=== PATIENT | female | born 1965 | race African-American/Black ===

== ENCOUNTER 2020-08-12 08:03 | Outpatient (CLI) | payer BC, SELFPAY ==
--- NOTE | ~2020-08-12 | MM_ITS ---
EXAMINATION: MM screening phil BI w fredy HISTORY: Screening TECHNIQUE: Craniocaudal and mediolateral oblique 3-D tomosynthesis images were obtained and synthetic 2-D images were generated. CAD analysis was submitted and interpreted. COMPARISON: Comparison to multiple prior studies sequentially, with oldest reviewed study dated 12/27. BREAST PARENCHYMAL COMPOSITION: There are scattered areas of fibroglandular density. FINDINGS: There is no evidence of suspicious mass, calcification, or architectural distortion to sugg est malignancy in either breast. There has been no suspicious interval change. IMPRESSION: 1. No mammographic evidence of malignancy. 2. Recommend routine screening mammography in one year. 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
== END 2020-08-12 08:04 | disposition home or self-care (01) ==
LOC: ANHIMG 08:04
PROVIDERS: PCP Pediatrics; Visit Provider Student in an Organized Health Care Education/Training Program
DX: Z12.31 Encounter for screening mammogram for malignant neoplasm of breast (principal)
CPT/HCPCS: 77063; 77067

== ENCOUNTER → 2020-08-27 01:23 | Outpatient (CLI) | payer BC, SELFPAY ==
[2020-08-27 19:13] LABS: SARS-CoV-2 RNA PCR Negative
== END ==
PROVIDERS: PCP Pediatrics; Visit Provider Internal Medicine Gastroenterology
DX: Z01.812 Encounter for preprocedural laboratory examination (principal); Z20.822 Contact with and (suspected) exposure to COVID-19
CPT/HCPCS: C9803; U0003; U0005

== ENCOUNTER 2020-08-31 03:09 | Day surgery (SDC) | payer BC, SELFPAY ==
[2020-08-19 10:54] VITALS: BMI 48.8
[2020-08-31 08:25] VITALS: BP 137/91; PULSE 82; RESP 19; TEMP 35.8; O2SAT 82
[2020-08-31 08:32] VITALS: BMI 48.5
[2020-08-31] MEDS: LACTATED RINGERS 1,000 ML 150 ML IV CONT (08:39)
--- NOTE | 2020-08-31 09:00 | PM.HPGS ---
History of Present Illness History of Present Illness Consent: Risks, benefits, and alternatives have been discussed and questions answered. Patient agrees to proceed with procedure. Chief complaint: Neoplasm Screening Narrative: Sakshi Rodney is a 54 year old female referred for colon cancer screening Review of Systems Review of Systems: All systems reviewed & are unremarkable except as noted in HPI and below PMFSH Past Medical History Medical History Complete miscarriage six and a half months stillborn delivery Hypertension Surgical History Surgical History History of tubal ligation Previous section Family History Family History Mother Hypertension Other Breast cancer Social History Social History Smoking status: Never smoker Alcohol intake: never Substance use: never Substance use type: does not use Living arrangements: with family Gender identity (if verbalized by the patient): Female Spiritual care concerns: No Meds Home Medications and Allergies Home Medications Medication Instructions Recorded Confirmed Type amlodipine 2.5 mg PO DAILY 05/21/19 08/31/20 History hydrochlorothiazide 25 mg PO DAILY 05/21/19 08/31/20 History allopurinol 300 mg tablet 300 mg PO DAILY 08/02/20 08/31/20 History ascorbic acid (vitamin C) 1,000 mg 1 g PO DAILY 08/02/20 08/31/20 History tablet ferrous sulfate 65 mg BYMOUTH DAILY 08/02/20 08/31/20 History Allergies Allergy/AdvReac Type Severity Reaction Status Date / Time No Known Allergies Allergy Verified 08/31/20 08:31 Exam Resp: Auscultation: clear to auscultation bilaterally Cardio: Rate: regular rate Rhythm: regular rhythm GI: GI Palp: Yes Soft to palpation and No Tenderness to palpation present (GI) Assessment and Plan Assessment and plan (1) Colon cancer screening: Code(s): Z12.11 - Encounter for screening for malignant neoplasm of colon Status: Acute Assessment and Plan: Colonoscopy with possible biopsy or polypectomy or cautery or injection of substances.
--- NOTE | 2020-08-31 09:18 | WPDANESEPPF ---
Anes - Initial Pre Proc Eval Procedure: Operation Date: 08/31/20 09:30 Proposed Procedures p Screening Colonoscopy - Garladn Aparicio MD Date/Time: 08/31/20 09:18 Surgeon: Garland Aparicio MD Pre Op Diagnosis: Neoplasm Screening Patient Data Age: 54 Gender: F Height: 5 ft 3 in Weight: 124.3 kg Allergies Allergy/AdvReac Type Severity Reaction Status Date / Time No Known Allergies Allergy Verified 08/31/20 08:31 Home Medications Medication Instructions Recorded Confirmed Type amlodipine 2.5 mg PO DAILY 05/21/19 08/31/20 History hydrochlorothiazide 25 mg PO DAILY 05/21/19 08/31/20 History allopurinol 300 mg tablet 300 mg PO DAILY 08/02/20 08/31/20 History ascorbic acid (vitamin C) 1,000 mg 1 g PO DAILY 08/02/20 08/31/20 History tablet ferrous sulfate 65 mg BYMOUTH DAILY 08/02/20 08/31/20 History Patient hx anesthesia problems: none Family hx anesthesia problems: none PMFSH Past Medical History Medical History Complete miscarriage six and a half months stillborn delivery Hypertension Surgical History Surgical History History of tubal ligation Previous section Family History Family History Mother Hypertension Other Breast cancer Social History Social History Smoking status: Never smoker Alcohol intake: never Substance use: never Substance use type: does not use Living arrangements: with family Gender identity (if verbalized by the patient): Female Spiritual care concerns: No Anes - Eval Final PreProcedure Day of Procedure 08/31/20 09:18 Patient weight: morbidly obese Heart: regular rate and rhythm Lungs: clear to auscultation Airway: Mallampati scale class II Neurological: alert and oriented Last oral intake: >/= 8 hours ASA classification: III Emergent: no Anesthetic plan: proceed Anesthesia type and monitoring: general GIVS and standard monitoring Informed Consent: The patient's anesthetic plan and its attendant risks and benefits were discussed with the patient/family/POA. Questions were solicited and answers provided to the satisfaction of the patient/family/POA.
[2020-08-31 09:44] VITALS: BP 102/66; PULSE 81; RESP 26; O2SAT 97
[2020-08-31 09:54] VITALS: BP 107/66; PULSE 72; RESP 21; O2SAT 98
[2020-08-31 10:04] VITALS: BP 114/69; PULSE 69; RESP 19; O2SAT 98
[2020-08-31 10:12] VITALS: BP 108/74; PULSE 67; RESP 16; O2SAT 100
== END 2020-08-31 10:21 | disposition home or self-care (01) ==
PROVIDERS: PCP Pediatrics; Visit Provider Internal Medicine Gastroenterology
PROC: 0DJD8ZZ Inspection of Lower Intestinal Tract, Via Natural or Artificial Opening Endoscopic (ICD-10-PCS; CPT 45378; principal; 2020-08-31 09:30)
DX: Z12.11 Encounter for screening for malignant neoplasm of colon (principal); I10 Essential (primary) hypertension; E66.01 Morbid (severe) obesity due to excess calories; Z68.42 Body mass index [BMI] 45.0-49.9, adult
CPT/HCPCS: 45378; J2704; J7120

== ENCOUNTER 2022-12-28 09:03 | Outpatient (CLI) | payer OTHER, SELFPAY ==
--- NOTE | ~2022-12-28 | MM_ITS ---
EXAMINATION: MM screening phil BI w fredy HISTORY: Screening TECHNIQUE: Craniocaudal and mediolateral oblique 3-D tomosynthesis images were obtained and synthetic 2-D images were generated. CAD analysis was submitted and interpreted. COMPARISON: Breast composed of scattered areas of fibroglandular density BREAST PARENCHYMAL COMPOSITION: FINDINGS: There is no evidence of suspicious mass, calcification, or architectural distortion to sugg est malignancy in either breast. There has been no suspicious interval change. IMPRESSION: 1. No mammographic evidence of malignancy. 2. Recommend routine screening mammography in one year. Reviewed, dictated and finalized at location A.
== END 2022-12-28 09:04 | disposition home or self-care (01) ==
LOC: ANHIMG 09:07
DX: Z12.31 Encounter for screening mammogram for malignant neoplasm of breast (principal)
CPT/HCPCS: 77063; 77067

== ENCOUNTER 2023-09-30 21:19 | Observation (INO) | payer OTHER, SELFPAY ==
--- NOTE | ~2023-09-30 | XR_ITS ---
EXAMINATION: XR chest 1V portable Exam Date/Time: 09/30/2023 22:12 CDT HISTORY: dizziness Comparison: 09/27/2021, report only. RESULT: Lines, tubes, and devices: None. Lungs and pleura: Streaky bibasilar atelectasis, left midlung granuloma, otherwise clear. Cardiomediastinal silhouette: Unremarkable. Other: No acute osseous or upper abdominal finding. IMPRESSION: No acute cardiopulmonary process. Reviewed, dictated and finalized at location K.
--- NOTE | ~2023-09-30 | CT_ITS ---
EXAMINATION: CTA brain carotid DATE: 09/30/2023 23:20 INDICATION: dizzines, slurred speech TECHNIQUE: Computed tomographic angiography (CTA) of the head was performed without and with 100 mL O mnipaque-350 intravenous contrast. CTA of the neck was performed with intravenous contrast. Automated exposure control and iterative reconstruction technique were employed. The dose-length product was 1 700.38 mGy-cm. Maximum intensity projection and volume rendered 3D-reconstructions were created by patience kennedy technologist on a separate workstation. COMPARISON: None. FINDINGS: CT BRAIN: No acute large vessel infarct, intracranial hemorrhage, mass, or hydrocephalus. CTA HEAD: No large vessel occlusion, aneurysm, high flow vascular malformation, nidus or extravasation. Patent cerebral veins. Symmetric parenchymal enhancement. CTA NECK: Aortic arch and proximal great vessels: Normal arch anatomy. Right common carotid, carotid bifurcation, and internal carotid artery: No plaque.There is 0% stenosi s of the proximal right internal carotid artery relative to normal distal artery lumen diameter (NASC ET criteria). Left common carotid, carotid bifurcation, and internal carotid artery: No plaque.There is 0% stenosis of the proximal left internal carotid artery relative to normal distal artery lumen diameter (NASCET criteria). Vertebral arteries: No significant plaque or stenosis. Other findings: None. IMPRESSION: No acute intracranial process. No large vessel intracranial occlusion, high-grade intracranial stenosis, or aneurysm. No carotid or vertebral artery occlusion, dissection, or significant stenosis. Reviewed, dictated and finalized at location K. IMPRESSION: No acute intracranial process. No large vessel intracranial occlusion, high-grade intracranial stenosis, or an eurysm. No carotid or vertebral artery occlusion, dissection, or significant stenosis.
--- NOTE | ~2023-09-30 | MR_ITS ---
EXAMINATION: MR brain/brain stem wo/w con DATE: 10/01/2023 09:35 INDICATION: Dizziness. Headache. TECHNIQUE: Magnetic resonance imaging (MRI) of the brain and brainstem was performed without and with 20 mL MultiHance intravenous contrast. COMPARISON: Head CT 09/30/2023 FINDINGS: There is no intracranial hemorrhage, acute infarction, or abnormal intracranial mass lesion . There is an empty sella. The ventricles are normal in size. The paranasal sinuses are clear. The or bits are normal. The mastoid air cells are normal. IMPRESSION: 1. Empty sella. Reviewed, dictated and finalized at location E. IMPRESSION: 1. Empty sella.
[2023-09-30 21:27] VITALS: BP 145/93; PULSE 88; RESP 16; TEMP 36.4; O2SAT 100
[2023-09-30 21:33] LABS: Glucose Point of Care 111 mg/dl (65-105)
[2023-09-30 22:04] VITALS: BP 145/93; PULSE 88; RESP 16; O2SAT 100
[2023-09-30 22:09] VITALS: PULSE 95
--- NOTE | 2023-09-30 22:10 | ECG_ITS ---
SEE SCANNED COPY FOR CONFIRMED REPORT MTDD
[2023-09-30] MEDS: SODIUM CHLORIDE 0.9% IV 1,000 ML 999 ML IV CONT (22:26)
[2023-09-30] MEDS: MECLIZINE HCL 25 MG TABLET PO (22:27)
[2023-09-30] MEDS: ONDANSETRON INJ 4 MG/2 ML VIAL IV PUSH (22:27)
[2023-09-30 22:31] LABS: Basophils Percent Auto 0.3 % (0.2-1.2); Hematocrit 40.4 % (37.0-47.0); Hemoglobin 13.4 g/dL (12.0-15.0); Immature Granulocyte Absolute 0.03 K/mm3 (0.00-0.031); Immature Granulocyte Percent A 0.4 % (0-0.5); Lymphocytes Percent Auto 11.6 % (18.3-44.2); Mean Corpuscular HGB Conc 33.2 g/dl (32-36); Mean Corpuscular Hemoglobin 30.9 pg (26-34); Mean Corpuscular Volume 93.3 fl (80-100); Mean Platelet Volume 9.6 fl (7.4-10.4); Monocytes Absolute Auto 0.5 K/mm3 (0.1-0.6); Monocytes Percent Auto 6.3 % (2.6-8.5); Neutrophils Absolute Auto 6.3 K/mm3 (1.3-6.7); Neutrophils Percent Auto 81.4 % (45.5-73.1); Platelet Count Result 207 k/mm3 (150-375); Red Blood Count 4.33 M/mm3 (4.2-5.4); Red Cell Distribution Width 13.2 % (11.5-14.5); White Blood Count 7.8 K/mm3 (4.5-10.0)
[2023-09-30 22:41] LABS: INR 0.9; Prothrombin Time 12.9 Seconds (11.1-14.7)
[2023-09-30 22:42] LABS: Partial Thromboplastin Time 26.5 Seconds (22.3-36.8)
[2023-09-30 22:44] LABS: Alanine Aminotransferase 19 U/L (6-35); Albumin Level 4.7 g/dL (3.5-5.1); Alkaline Phosphatase 90 U/L (38-126); Anion Gap 6 mmol/L (4-12); Aspartate Amino Transferase 47 U/L (14-36); Bilirubin,Total 0.8 mg/dL (0.2-1.3); Blood Urea Nitrogen 16 mg/dL (7-17); Calcium 9.8 mg/dL (8.4-10.2); Carbon Dioxide 31 mmol/L (22-30); Chloride 99 mmol/L (98-107); Estimated CRCL calculation 89 ml/min; Estimated Glomerular Filt Rate > 60; Glucose 133 mg/dL (65-110); Lactic Acid Reflex 1.3 mmol/L (0.7-2.0); Magnesium 1.8 mg/dL (1.6-2.3); Potassium 3.2 mmol/L (3.4-5.0); Sodium 136 mmol/L (137-145)
[2023-09-30 22:55] LABS: Troponin I < 0.012 ng/mL (0.000-0.034)
[2023-09-30 23:20] VITALS: BP 143/98; PULSE 83; RESP 23; O2SAT 100
[2023-10-01] VITALS (12 sets, daily range): BP systolic 99–124; BP diastolic 62–79; PULSE 72–95; RESP 16–20; TEMP 36.1–36.6; O2SAT 95–100; BMI 49.6
[2023-10-01 00:12] LABS: Appearance Urine Clear (Clear); Bilirubin Urine Negative (Negative); Blood Urine Negative (Negative); Color Urine Yellow (Yellow); Glucose Urine UA Negative (Negative); Ketones Urine Negative (Negative); Leukocyte Esterase Ur Negative LEU/UL (Negative); Nitrate Urine Negative (Negative); Protein Urine Negative (Negative); Urobilinogen Urine 0.2 mg/dL (<2.0)
--- NOTE | 2023-10-01 00:18 | ED.GENADULT ---
HPI - General Adult General Chief complaint: Neuro Symptoms/Deficit Stated complaint: dizziness, nausea/vomiting, slurring speech 1600 Time Seen by Provider: 09/30/23 22:05 History of Present Illness HPI narrative: Patient is a 58-year-old female presents emergency department with chief complaint of dizziness. Patient reports that around noon today started having episodes of dizziness. Patient also reports she had an episode of slurred speech around 4:00 p.m. patient reports she continues to feel dizzy and had some nausea with this as well. 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 The patient does report that she continues to have dizziness Related Data Home Medications Medication Instructions Recorded Confirmed amlodipine 2.5 mg tablet 2.5 mg PO DAILY 05/21/19 05/05/23 hydrochlorothiazide 25 mg tablet 25 mg PO DAILY 05/21/19 05/05/23 allopurinol 300 mg tablet 300 mg PO DAILY 08/02/20 05/05/23 ascorbic acid (vitamin C) 1,000 mg 1 g PO DAILY 08/02/20 05/05/23 tablet ferrous sulfate 65 mg BYMOUTH DAILY 08/02/20 05/05/23 metformin 500 mg tablet 500 mg PO DAILY 04/23/23 05/05/23 Allergies Allergy/AdvReac Type Severity Reaction Status Date / Time No Known Allergies Allergy Verified 04/23/23 11:48 Review of Systems Review of Systems: A 10 system review of systems was completed on the patient and is negative except for what is stated in the HPI. Nursing and ancillary documentation was reviewed. [facility] Past Medical History Medical History Complete miscarriage six and a half months stillborn delivery Hypertension Pre-diabetes Surgical History Surgical History History of tubal ligation Previous section Family History Family History Mother Hypertension Other Breast cancer Social History Social History Smoking status: Never smoker Alcohol intake: never Substance use: never Substance use type: does not use Lack of Transportation: No Lack of Food: Never True Current Housing: I Have Housing Concerned About Future Housing: No Difficulty Paying Gas/Electric Bills: No Difficulty Paying for Meds: No Currently Unemployed: No Living arrangements: with family Occupation/Education: occupation Gender identity (if verbalized by the patient): Female Spiritual care concerns: No Exam Narrative: GENERAL: Well-appearing, well-nourished, and in no acute distress. HEAD: Normocephalic, atraumatic. EYES: PERRLA and EOMI. ENT: Nares clear, no rhinorrhea or epistaxis. Mucous membranes moist. NECK: Supple. CHEST: Clear to auscultation. No respiratory distress. HEART: Regular rate and rhythm. No murmur heard. Normal peripheral pulses. ABDOMEN: Soft, nontender, nondistended, normal active bowel sounds. EXTREMITIES: Normal range of motion. No edema. SKIN: Warm, dry, no rash. NEURO: No focal deficits. Alert and oriented x3. Patient does have dizziness present with movement of head PSYCH: Normal mood and affect. Course Vital Signs Vital signs: Vital Signs Temperature 36.4 C 09/30/23 21:27 Pulse Rate 88 09/30/23 21:27 Respiratory Rate 16 09/30/23 21:27 Blood Pressure 145/93 H 09/30/23 21:27 Pulse Oximetry 100 09/30/23 21:27 Oxygen Delivery Room Air 09/30/23 21:27 Temperature 36.4 C 09/30/23 21:27 Pulse Rate 83 09/30/23 23:20 Respiratory Rate 23 H 09/30/23 23:20 Blood Pressure 143/98 H 09/30/23 23:20 Pulse Oximetry 100 09/30/23 23:20 Oxygen Delivery Room Air 09/30/23 21:27 Medical Decision Making [facility] Narrative Medical decision making narrative: Differential diagnosis includes vertigo, CVA,
[2023-10-01 00:22] LABS: Add Urine Microscopic? NO; Specific Grav Ur 1.066 (1.001-1.035)
--- NOTE | 2023-10-01 01:58 | PC.NURSE ---
Pt brought up to the floor A&O x4, able to make needs known. Pt c/o dizziness, pt stated that dizziness decreased since she was administered meclizine. Pt is on telemetry, room air. Pt is diabetic and takes Ozempic at home, once a week on . Pt educated about the call light use, asked to call for assistance when needed. Medication reconciliation completed and admission reviewed with the pt. Pt informed about ECHO and MRI ordered for 10/01/23. MRI screening form completed. Pt with no further questions, will continue to monitor.
[2023-10-01] MEDS: CALCIUM CARBONATE (TUMS) 500 MG (200 MG ELEMENTAL) PO (02:11)
--- NOTE | 2023-10-01 08:31 | PM.IMHP ---
H&P: HPI History of Present Illness Date/Time: 10/01/23 08:31 Chief Complaint: Dizziness and slurred speech Narrative: Patient is a 58-year-old female with history of hypertension, gout, presented ED with a chief complaint of dizziness. patient had episodes of dizziness that started yesterday about noontime and patient also had episode of slurred speech about 4:00 p.m. yesterday. Patient denied vision change, focal weakness. Patient states that she has dizziness when patient stands up and walks. Patient denies vision change, focal weakness, she had some nausea with this as well. upon arrival in the ED, patient was afebrile, blood pressure stable, labs showed hypokalemia 3.2, otherwise unremarkable. CT of head and neck showed no acute intracranial issue issues, no large vessel occlusion, high-grade intracranial stenosis or aneurysm, no carotid or vertebral artery occlusion dissection or significant stenosis. [facility] Past Medical History Medical History Complete miscarriage six and a half months stillborn delivery Hypertension Pre-diabetes Surgical History Surgical History History of tubal ligation Previous section Family History Family History Mother Hypertension Other Breast cancer Social History Social History Smoking status: Never smoker Alcohol intake: never Substance use: never Substance use type: does not use Do You Feel Safe in your Home?: Yes Lack of Transportation: No Lack of Food: Never True Current Housing: I Have Housing Concerned About Future Housing: No Difficulty Paying Gas/Electric Bills: No Difficulty Paying for Meds: No Currently Unemployed: No Education: High School Diploma/GED Difficulty w/ Childcare or Family Care: No Living arrangements: with family Occupation/Education: occupation Gender identity (if verbalized by the patient): Female Spiritual care concerns: No Meds Home Medications and Allergies Home Medications Medication Instructions Recorded Confirmed Type amlodipine 2.5 mg tablet 2.5 mg PO DAILY 05/21/19 10/01/23 History hydrochlorothiazide 25 mg tablet 25 mg PO DAILY 05/21/19 10/01/23 History allopurinol 300 mg tablet 300 mg PO DAILY 08/02/20 10/01/23 History ascorbic acid (vitamin C) 1,000 mg 1 g PO DAILY 08/02/20 10/01/23 History tablet ferrous sulfate 65 mg BYMOUTH DAILY 08/02/20 10/01/23 History semaglutide 1 mg/dose (4 mg/3 mL) 1 mg subcut WEEKLY 10/01/23 10/01/23 History subcutaneous pen injector (Ozempic) Allergies Allergy/AdvReac Type Severity Reaction Status Date / Time No Known Allergies Allergy Verified 04/23/23 11:48 Vital Signs Vital Signs - 24 hr 09/30/23 21:27 09/30/23 22:04 09/30/23 22:09 Temperature 97.6 F Pulse Rate 88 88 95 Respiratory Rate 16 16 Blood Pressure 145/93 H 145/93 H Pulse Oximetry 100 100 Oxygen Delivery Room Air 09/30/23 23:20 10/01/23 01:34 10/01/23 01:20 Temperature 97.9 F Pulse Rate 83 87 90 Respiratory Rate 23 H 18 16 Blood Pressure 143/98 H 124/75 Pulse Oximetry 100 100 96 Oxygen Delivery Room Air 10/01/23 04:00 10/01/23 06:00 Temperature 97.8 F Pulse Rate 75 78 Respiratory Rate 16 Blood Pressure 114/70 Pulse Oximetry 98 Oxygen Delivery Exam Narrative: GENERAL: Pleasant, in no acute distress. Well-nourished. - EYES: EOMI. Anicteric. - HENT: Moist mucous membranes. - LUNGS: Clear to auscultation bilaterally, no wheezing, rhonchi, or rales. - CARDIOVASCULAR: Regular rate and rhythm. No murmur. No JVD. - ABDOMEN: Soft, non-tender and non-distended. No palpable masses. - EXTREMITIES: No edema. Peripheral pulses 2+. Non-tender. - NEUROLOGIC: No focal neurological deficits.
[2023-10-01] MEDS: ACETAMINOPHEN 325 MG TABLET 650 MG PO (08:41)
[2023-10-01] MEDS: ONDANSETRON INJ 4 MG/2 ML VIAL IV PUSH (08:41)
[2023-10-01] MEDS: ASPIRIN 81 MG CHEWABLE TABLET PO (08:43)
--- NOTE | 2023-10-01 08:48 | ECHO_ITS ---
Patient Info Name: Sakshi Rodney Age: 58 years : 1965 Gender: Female Ht: 63 in Wt: 279 lbs BSA: 2.45 m2 HR: 79 bpm BP: 114 / 70 mmHg Heart Rhythm: Sinus Rhythm Technical Quality: Fair Exam Date: 10/01/2023 11:21 AM Exam Location: Echo Lab Patient Status: Inpatient Admit Date: 10/01/2023 Staff Ordering Physician: Katerine Dalal MD Configuration Release Manager: Vee Soliz RDCS Attending Provider: Mienrva Espinoza MD Exam Type: CA echo doppler w bubble study Study Info Indications - TIA Complete two-dimensional, color flow and Doppler transthoracic echocardiogram is performed. Summary 1. Left ventricular chamber dimension is normal. 2. Left ventricular systolic function is normal, estimated at 65-70%. 3. The left ventricular diastolic function is grade I diastolic dysfunction. 4. Right ventricular chamber dimension is mildly enlarged. 5. Right ventricular systolic function is normal. 6. Intact interatrial septum visualized by color flow and agitated saline imaging. Negative bubble study. 7. There is mild mitral valve regurgitation. 8. There is mild tricuspid valve regurgitation. Left Ventricle Left ventricular chamber dimension is normal. Left ventricular systolic function is normal, estimated at 65-70%. There is no increased left ventricular wall thickness. The left ventricular diastolic function is grade I diastolic dysfunction. Right Ventricle Right ventricular chamber dimension is mildly enlarged. Right ventricular systolic function is normal. Left Atria Left atrial chamber dimension is normal. Right Atria Right atrial chamber dimension is normal. Atrial Septum Intact interatrial septum visualized by color flow and agitated saline imaging. Negative bubble study. Aortic Valve The aortic valve is trileaflet. There is no aortic valve stenosis. There is no aortic valve regurgitation. There is mild aortic valve calcification. Pulmonic Valve The pulmonic valve is not well visualized. Mitral Valve There is mild mitral valve regurgitation. Tricuspid Valve There is mild tricuspid valve regurgitation. Pericardium/Pleural The pericardium appears epicardial fat pad. There is no pericardial effusion. Inferior Vena Cava Normal inferior vena cava with >50% collapse upon inspiration consistent with normal right atrial pressure, 3 mmHg. Aorta The aortic root size at the sinus of Valsalva is normal. Left Ventricular Outflow Tract Name Value Normal LVOT 2D LVOT Diameter 1.9 cm LVOT Doppler LVOT Peak Gradient 8 mmHg LVOT Mean Gradient 4 mmHg LVOT VTI 31 cm LVOT VTI/AV VTI Ratio 0.8 LVOT Stroke Volume 90 ml LVOT CO 6.0 l/min LVOT CI 2.4 l/min/m2 Pulmonic Valve Name Value Normal RVOT Doppler RVOT Peak Gradient
[2023-10-01] MEDS: POTASSIUM CHLORIDE 20 MEQ PACKET (FOR LIQUID) 40 MEQ PO (10:10)
[2023-10-01] MEDS: allopurinoL 300 MG TABLET PO (10:10)
[2023-10-01 10:27] LABS: Cholesterol 203 mg/dL (0-200); HDL Direct 59 mg/dL; Magnesium 1.9 mg/dL (1.6-2.3); Triglycerides 87 mg/dL (<150)
[2023-10-01 10:38] LABS: LDL Cholesterol Direct 103 mg/dL
--- NOTE | 2023-10-01 11:23 | WPDNEURCNPN ---
Assessment and Plan Assessment and plan (1) Essential hypertension: Code(s): I10 - Essential (primary) hypertension Status: Acute (2) TIA (transient ischemic attack): Code(s): G45.9 - Transient cerebral ischemic attack, unspecified Status: Acute (3) Dizziness: Code(s): R42 - Dizziness and giddiness Status: Acute Plan dizziness with dysarthria raising the possibility of TIA, MRI of the brain is normal so as the CTA of head and neck , to complete the evaluation surface echocardiogram is necessary considering the remote possibility of TIA from embolic source. Further recommendation will be done accordingly in the meantime patient is being continued on the same medication. Consult date: 10/01/23 HPI: Sakshi Rodney is a 58 year old female admitted to the hospital through the emergency room for the complaints of dizziness with nausea and vomiting in addition to slurred speech. Symptomatology started around known on the day of visit to the ER when she started having episodic dizziness as well she was able to move all extremities and by the time she was seen by the personnel in the ER the speech has returned to normal. Her medications included amlodipine 2.5mg daily, hydrochlorothiazide 25mg daily, allopurinol 300mg daily, metformin 500mg daily. She is not allergic to any medications. But she does carry only diagnosis of hypertension with prediabetes status. She has never smoker, never alcohol intake or, and her initial exam in the emergency room was documented as normal with normal vital sign except the blood pressure 145/93 normal EKG negative chest x-ray normal CBC and BMP with sodium 136 potassium 3.2, her initial CTA of the brain in the ER negative for the bleed, aneurysm, or any occlusive disease. Subsequent MRI of the brain has documented empty sella. [facility] Past Medical History Medical History Complete miscarriage six and a half months stillborn delivery Hypertension Pre-diabetes Surgical History Surgical History History of tubal ligation Previous section Family History Family History Mother Hypertension Other Breast cancer Social History Social History Smoking status: Never smoker Alcohol intake: never Substance use: never Substance use type: does not use Do You Feel Safe in your Home?: Yes Lack of Transportation: No Lack of Food: Never True Current Housing: I Have Housing Concerned About Future Housing: No Difficulty Paying Gas/Electric Bills: No Difficulty Paying for Meds: No Currently Unemployed: No Education: High School Diploma/GED Difficulty w/ Childcare or Family Care: No Living arrangements: with family Occupation/Education: occupation Gender identity (if verbalized by the patient): Female Spiritual care concerns: No Meds Home Medications and Allergies Home Medications Medication Instructions Recorded Confirmed Type amlodipine 2.5 mg tablet 2.5 mg PO DAILY 05/21/19 10/01/23 History hydrochlorothiazide 25 mg tablet 25 mg PO DAILY 05/21/19 10/01/23 History allopurinol 300 mg tablet 300 mg PO DAILY 08/02/20 10/01/23 History ascorbic acid (vitamin C) 1,000 mg 1 g PO DAILY 08/02/20 10/01/23 History tablet ferrous sulfate 65 mg BYMOUTH DAILY 08/02/20 10/01/23 History semaglutide 1 mg/dose (4 mg/3 mL) 1 mg subcut WEEKLY 10/01/23 10/01/23 History subcutaneous pen injector (Ozempic) Allergies Allergy/AdvReac Type Severity Reaction Status Date / Time No Known Allergies Allergy Verified 04/23/23 11:48 Vital Signs Vital Signs - 24 hr 09/30/23 21:27 09/30/23 22:04 09/30/23 22:09 Temperature 36.4 C Pulse Rate 88 88 95 Respiratory Rate 16 16 Blood Pressure
--- NOTE | 2023-10-01 17:33 | PC.NURSE ---
RN called Hospitalist Mulugeta due to patient requesting Flonase. Hospitalist did not answer phone call.
[2023-10-01 19:33] LABS: Hemoglobin A1C 5.4 % (<5.7)
[2023-10-01] MEDS: FLUTICASONE PROPIONATE 0.05% NA SPR 16 GM BTL (*BKC) 1 SPRAY NASAL (20:28)
[2023-10-02] VITALS: PULSE 76
[2023-10-02 04:00] VITALS: PULSE 72
[2023-10-02 05:51] VITALS: BP 104/75; PULSE 72; RESP 20; TEMP 36.3; O2SAT 96
[2023-10-02 06:10] LABS: Glucose Point of Care 94 mg/dl (65-105)
[2023-10-02] MEDS: ACETAMINOPHEN 325 MG TABLET 650 MG PO (06:17)
[2023-10-02 08:00] VITALS: PULSE 80
[2023-10-02] MEDS: POTASSIUM CHLORIDE 20 MEQ PACKET (FOR LIQUID) 40 MEQ PO (09:02)
[2023-10-02] MEDS: ASPIRIN 81 MG CHEWABLE TABLET PO (09:03)
[2023-10-02] MEDS: allopurinoL 300 MG TABLET PO (09:03)
--- NOTE | 2023-10-02 09:52 | PM.IMPN ---
Progress Note: A&P Assessment and Plan (1) Dizziness: Code(s): R42 - Dizziness and giddiness Status: Acute (2) TIA (transient ischemic attack): Code(s): G45.9 - Transient cerebral ischemic attack, unspecified Status: Acute (3) Essential hypertension: Code(s): I10 - Essential (primary) hypertension Status: Acute (4) Hypokalemia: Code(s): E87.6 - Hypokalemia Status: Acute Plan TIA: patient had a severe episode of dizziness yesterday and also had episode of slurred speech about 4:00 p.m. yesterday No focal weakness, or abnormal sensation CT head and neck unremarkable Follow-up orthostatic test neuro check Brain MRI without contrast telemetry monitoring Follow lipid panel, A1c, echocardiogram with bubble study consult neurologist for evaluation and management 10/01 MRI: There is no intracranial hemorrhage, acute infarction, or abnormal intracranial mass lesion. There is an empty sella. The ventricles are normal in size. The paranasal sinuses are clear. The orbits are normal. The mastoid air cells are normal. appreciate neurologist consultation, neurologist recommend patient be discharged, and neurologist also discussed with patient about follow-up with [facility] outpatient essential hypertension Hold hypertension medication blood pressure low Hypotension 09/30 Possible due to poor intake and diuretic medication Start normal saline IV blood pressure stable today10/01 dizzy IV fluid acute sinusitis Patient has nasal drainage, and right ear pain Tympanic membrane is intact, no erythema, no bulging, no discharge Start Augmentin 500 b.i.d. for 5 more days recommend patient to see ENT if condition getting worse hypokalemia Likely secondary to hydrochlorothiazide Hold hydrochlorothiazide Provide potassium chloride p.o. Follow-up BMP, magnesium corrected, magnesium 2.0 prediabetic Home metformin follow-up with primary care doctor Subjective Date/time seen: 10/02/23 09:52 Interval history: I saw and exam patient today. Patient denied headache, focal weakness, Achilles has resolved. Patient has drainage from nose, and right ear pain. No discharge from right ear, patient also denies right ear trauma. Patient afebrile, blood pressure stable Exam Narrative: GENERAL: Pleasant, in no acute distress. Well-nourished. - EYES: EOMI. Anicteric. - HENT: Moist mucous membranes. - LUNGS: Clear to auscultation bilaterally, no wheezing, rhonchi, or rales. - CARDIOVASCULAR: Regular rate and rhythm. No murmur. No JVD. - ABDOMEN: Soft, non-tender and non-distended. No palpable masses. - EXTREMITIES: No edema. Peripheral pulses 2+. Non-tender. - NEUROLOGIC: No focal neurological deficits. CN II-XII grossly intact. - PSYCHIATRIC: Awake, Alert and oriented x 3. Appropriate mood and affect. - SKIN: No rashes or lesions. Warm. - LYMPH: No cervical lymphadenopathy. Objective Data Vital Signs Vital Signs: Vital Signs - 24 hr 10/01/23 12:00 10/01/23 14:00 10/01/23 16:00 Temperature 97.9 F Pulse Rate 91 76 81 Respiratory Rate 18 Blood Pressure 99/64 L Pulse Oximetry 95 10/01/23 18:43 10/01/23 18:43 10/01/23 18:44 Temperature Pulse Rate Respiratory Rate Blood Pressure 102/62 111/73 109/79 Pulse Oximetry 10/01/23 20:00 10/01/23 21:49 10/02/23 00:00 Temperature 97.0 F L Pulse Rate 72 79 76 Respiratory Rate 20 Blood Pressure 112/64 Pulse Oximetry 95 10/02/23 04:00 10/02/23 05:51 Temperature 97.3 F L Pulse Rate 72 72 Respiratory Rate 20 Blood Pressure 104/75 Pulse Oximetry 96 Intake/Output Intake/Output: Intake & Output 09/29/23 09/30/23 10/01/23 10/02/23 23:59 23:59 23:59 23:59 Intake Total 8555 440 Output Total 250 Balance 1567 440 Meds/Results Medications: Active Medications Generic Name Dose Route Start Last Admin Trade Name Freq PRN Reason Sto
[2023-10-02 10:16] LABS: Anion Gap 1 mmol/L (4-12); Blood Urea Nitrogen 12 mg/dL (7-17); Calcium 9.5 mg/dL (8.4-10.2); Carbon Dioxide 34 mmol/L (22-30); Chloride 102 mmol/L (98-107); Estimated CRCL calculation 89 ml/min; Estimated Glomerular Filt Rate > 60; Glucose 89 mg/dL (65-110); Sodium 137 mmol/L (137-145)
--- NOTE | 2023-10-02 10:36 | PM.DS ---
DS: Admitting Diagnosis Discharge Date 10/01 Admitting Diagnosis (1) Dizziness: ?Code(s): R42 - Dizziness and giddiness ?Status:?Acute (2) TIA (transient ischemic attack): ?Code(s): G45.9 - Transient cerebral ischemic attack, unspecified ?Status:?Acute (3) Essential hypertension: ?Code(s): I10 - Essential (primary) hypertension ?Status:?Acute (4) Hypokalemia: ?Code(s): E87.6 - Hypokalemia ?Status:?Acute DS: Discharge Diagnosis Discharge Diagnosis (1) Dizziness: Code(s): R42 - Dizziness and giddiness Status: Acute (2) TIA (transient ischemic attack): Code(s): G45.9 - Transient cerebral ischemic attack, unspecified Status: Acute (3) Essential hypertension: Code(s): I10 - Essential (primary) hypertension Status: Acute (4) Hypokalemia: Code(s): E87.6 - Hypokalemia Status: Acute DS: Summary Hospital Course Hospital Course: Patient is a 58-year-old female? with history of hypertension, gout,? presented ED with a chief complaint of dizziness.? patient had episodes of dizziness that started yesterday? about noontime and patient also had episode of slurred speech about 4:00 p.m. yesterday.? Patient denied vision change, focal weakness.? Patient states that she has dizziness when patient? stands up and walks.? Patient denies vision change, focal weakness, she had some nausea with this as well.? upon arrival in the ED, patient was afebrile, blood pressure stable, labs showed hypokalemia 3.2, otherwise unremarkable. ? CT of head and neck showed no acute intracranial issue issues, no large vessel occlusion, high-grade intracranial stenosis or aneurysm, no carotid? or vertebral artery occlusion dissection or significant stenosis.? the following med issues have been addressed during hospitalization TIA: patient had a severe episode of dizziness yesterday and also had episode of slurred speech about 4:00 p.m. yesterday No focal weakness, or abnormal sensation CT head and neck unremarkable Follow-up orthostatic test neuro check Brain MRI without contrast telemetry monitoring Follow lipid panel, A1c, echocardiogram with bubble study consult neurologist for evaluation and management 10/01 MRI: There is no intracranial hemorrhage, acute infarction, or abnormal intracranial mass lesion. There is an empty sella. The ventricles are normal in size. The paranasal sinuses are clear. The orbits are normal. The mastoid air cells are normal. appreciate neurologist consultation, neurologist recommend patient be discharged, and neurologist also discussed with patient about follow-up with [facility] outpatient essential hypertension Hold hypertension medication blood pressure low Hypotension 09/30 Possible due to poor intake and diuretic medication Start normal saline IV blood pressure stable today10/01 dizzy IV fluid acute sinusitis Patient has nasal drainage, and right ear pain Tympanic membrane is intact, no erythema, no bulging, no discharge Start Augmentin 500 b.i.d. for 5 more days recommend patient to see ENT if condition getting worse hypokalemia Likely secondary to hydrochlorothiazide Hold hydrochlorothiazide Provide potassium chloride p.o. Follow-up BMP, magnesium corrected, magnesium 2.0 prediabetic Home metformin follow-up with primary care doctor Time Spent with Patient Time attestation: Total time spent providing and/or coordinating discharge services: Exam Narrative: GENERAL: Pleasant, in no acute distress. Well-nourished. - EYES: EOMI. Anicteric. - HENT: Moist mucous membranes. - LUNGS: Clear to auscultation bilaterally, no wheezing, rhonchi, or rales. - CARDIOVASCULAR: Regular rate and rhythm. No murmur. No JVD. - ABDOMEN: Soft, non-tender and non-distended. No palpable masses. - EXTREMITIES: No edema. Peripheral pulses 2+. Non-tender. - NEUROLOGIC: No focal neurological defic
[2023-10-02 10:39] LABS: Basophils Percent Auto 0.7 % (0.2-1.2); Hematocrit 41.3 % (37.0-47.0); Immature Granulocyte Absolute 0.04 K/mm3 (0.00-0.031); Immature Granulocyte Percent A 0.9 % (0-0.5); Lymphocytes Absolute Auto 1.25 K/mm3 (0.9-3.2); Lymphocytes Percent Auto 27.5 % (18.3-44.2); Mean Corpuscular HGB Conc 31.5 g/dl (32-36); Mean Corpuscular Hemoglobin 30.8 pg (26-34); Mean Corpuscular Volume 97.9 fl (80-100); Mean Platelet Volume 10.2 fl (7.4-10.4); Monocytes Absolute Auto 0.5 K/mm3 (0.1-0.6); Monocytes Percent Auto 10.8 % (2.6-8.5); Neutrophils Absolute Auto 2.7 K/mm3 (1.3-6.7); Neutrophils Percent Auto 60.1 % (45.5-73.1); Platelet Count Result 211 k/mm3 (150-375); Red Blood Count 4.22 M/mm3 (4.2-5.4); Red Cell Distribution Width 13.3 % (11.5-14.5); White Blood Count 4.6 K/mm3 (4.5-10.0)
== END 2023-10-02 11:10 | disposition home or self-care (01) ==
LOC: ANHED 10-01 00:22 → ANH3MED 10-01 00:56
PROVIDERS: Admitting Provider Internal Medicine; Emergency Provider Emergency Medicine; Visit Provider Hospitalist
DX: G45.9 Transient cerebral ischemic attack, unspecified (principal); I11.9 Hypertensive heart disease without heart failure; E87.6 Hypokalemia; E23.6 Other disorders of pituitary gland; I95.9 Hypotension, unspecified; J01.90 Acute sinusitis, unspecified; R73.03 Prediabetes; I08.1 Rheumatic disorders of both mitral and tricuspid valves; M10.9 Gout, unspecified; Z79.85 Long-term (current) use of injectable non-insulin antidiabetic drugs; Z79.899 Other long term (current) drug therapy
CPT/HCPCS: 36415; 70496; 70498; 70553; 71045; 80048; 80053; 80061; 81003; 82948; 83036; 83605; 83735; 84484; 85025; 85610; 85730; 93005; 93306; 96361; 96374; 96375; 96376; 99285; A9270; A9577; G0378; J2405; J7030; Q9967

== ENCOUNTER 2024-03-19 16:28 | Outpatient (CLI) | payer OTHER, SELFPAY ==
--- NOTE | ~2024-03-19 | MM_ITS ---
EXAMINATION: MM screening phil BI w fredy HISTORY: Screening. Family history of breast cancer diagnosed in a maternal aunt premenopausal. TECHNIQUE: Craniocaudal and mediolateral oblique 3-D tomosynthesis images were obtained and synthetic 2-D images were generated. CAD analysis was submitted and interpreted. COMPARISON: Examination is compared with multiple prior studies, performed most recently on 12/28/2022 and dating back to 04/30/2019 BREAST PARENCHYMAL COMPOSITION: There are scattered areas of fibroglandular density. FINDINGS: Punctate calcifications are detected bilaterally, stable and benign in appearance. Stable parenchymal pattern without suspicious microcalcifications, architectural distortion, discrete masses or significant asymmetry. IMPRESSION: 1. No mammographic evidence of malignancy. 2. Recommend routine screening mammography in one year. BI-RADS Category 2: Benign finding(s). Reviewed, dictated and finalized at location A.
== END 2024-03-19 16:29 | disposition home or self-care (01) ==
LOC: ANHIMG 16:31
PROVIDERS: Visit Provider Obstetrics & Gynecology
DX: Z12.31 Encounter for screening mammogram for malignant neoplasm of breast (principal)
CPT/HCPCS: 77063; 77067